=== PATIENT | male | born 2000 | race Caucasian/White ===

== ENCOUNTER 2018-08-07 10:33 | Emergency (ER) | payer OTHER ==
[2018-08-07] MEDS ORDERED: Lidocaine 1% (PF) 30 ML VIAL ONE (11:20)
[2018-08-07] MEDS ORDERED: HYDROcodone/Acetaminophen 5/325 mg Tablet ONE (11:20)
--- NOTE | 2018-08-07 12:16 | RAD ---
RIGHT HAND 3 VIEWS: HISTORY: Right hand injury. FINDINGS: There is cortical disruption through the callus formation at the angulated boxer's fracture right 5th metacarpal neck. No displacement. Soft tissue swelling. No evidence of intraarticular extension. IMPRESSION: Probable re-fracture of the right 5th metacarpal healing boxer's fracture. POS: SOL
--- NOTE | 2018-08-07 12:33 | RAD ---
THREE VIEWS RIGHT HAND: DATE: 08/07/2018. HISTORY: Post reduction of fracture right hand. COMPARISON: 08/07/2018 at 1045 hours. FINDINGS: Again noted is the boxer's fracture involving the distal right 5th metacarpal. Overall alignment of the fracture has not significantly changed from the prior exam. Overlying subcutaneous soft tissue swelling is present. IMPRESSION: 1. The boxer's fracture involving the right 5th metacarpal is again seen and likely represents, as n oted on the prior exam, refracture of right 5th metacarpal healing boxer's fracture. 2. Subcutaneous soft tissue swelling. POS: IVAN
== END 2018-08-07 12:20 | disposition home or self-care (01) ==
LOC: NAV ERS 10:33
DX: S62.366A Nondisplaced fracture of neck of fifth metacarpal bone, right hand, initial encounter for closed fracture (principal); J45.909 Unspecified asthma, uncomplicated; Z79.899 Other long term (current) drug therapy; Y04.0XXA Assault by unarmed brawl or fight, initial encounter
CPT/HCPCS: 26605; J2001